=== PATIENT | male | born 1930 | race Asian ===

== ENCOUNTER → 2019-03-30 | Outpatient (CLI) | payer MEDICARE, OTHER | END | disposition home or self-care (01) | LOC: RADPV 10:38 | PROVIDERS: ATTEND Internal Medicine | DX: I08.3 Combined rheumatic disorders of mitral, aortic and tricuspid valves (principal) | CPT/HCPCS: 93306 ==

== ENCOUNTER → 2019-08-01 | Outpatient (CLI) | payer MEDICARE, OTHER | END | disposition home or self-care (01) | LOC: RADPV 09:17 | PROVIDERS: ATTEND Internal Medicine | DX: I65.23 Occlusion and stenosis of bilateral carotid arteries (principal) | CPT/HCPCS: 93880 ==

== ENCOUNTER → 2021-07-07 | Outpatient (CLI) | payer MEDICARE, OTHER ==
[~2021-07-07] MED LIST: ASPI-1227 PO; CHOL-35 PO; FURO40 PO; METF-1211 PO; NIFE-64 PO; OS500 PO; POTA-92 PO; SIMV-259 PO; TELM40 PO; TERA1CAP53 PO; [UNRECOGNIZED DRUG - CODE] IM
== END | disposition home or self-care (01) ==
LOC: RADMN 10:50
PROVIDERS: ATTEND Internal Medicine
DX: I70.0 Atherosclerosis of aorta (principal); J90 Pleural effusion, not elsewhere classified; J81.1 Chronic pulmonary edema; I10 Essential (primary) hypertension; I50.9 Heart failure, unspecified; I35.2 Nonrheumatic aortic (valve) stenosis with insufficiency
CPT/HCPCS: 71046

== ENCOUNTER 2021-07-08 12:01 | Inpatient (IN) | payer MEDICARE, OTHER ==
[~2021-07-08] VITALS: Ht 160 cm; Wt 69.5 kg
[2021-07-08 12:58] LABS: BASOPHILS % (AUTO) 0.9 % (0.0-2.0); EOSINOPHILS % (AUTO) 1.5 % (1.0-6.0); HEMATOCRIT 34.4 % (41-53); HEMOGLOBIN 11.5 g/dL (13.5-17.5); LYMPHOCYTES # (AUTO) 0.7 K/uL (1.0-4.8); LYMPHOCYTES % (AUTO) 9.1 % (22.0-44.0); MEAN CORPUSCULAR HEMOGLOBIN 28.8 pg (26.0-34.0); MEAN CORPUSCULAR HGB CONC 33.5 G/dL (31.0-37.0); MEAN CORPUSCULAR VOLUME 86 fL (80-100); MONOCYTES # (AUTO) 0.4 K/uL (0.1-1.0); MONOCYTES % (AUTO) 5.2 % (2.0-9.0); NEUTROPHILS # (AUTO) 6.4 K/uL (1.8-7.7); NEUTROPHILS % (AUTO) 83.3 % (40.0-70.0); PLATELET COUNT (AUTO) 203 K/uL (150-450); RED CELL DISTRIBUTION WIDTH 15.1 % (11.5-14.5)
[2021-07-08 13:03] LABS: COVID AG,FIA SOURCE NASOPHARYNGEAL
[2021-07-08 13:12] LABS: CALCIUM, TOTAL 9.5 mg/dL (8.8-10.5); CREATININE 1.17 mg/dL (0.60-1.30); POTASSIUM 4.2 mmol/L (3.5-5.1)
[2021-07-08] MEDS ORDERED: FUROSEMIDE 40 MG/4 ML VIAL IVP ONE (13:30)
[2021-07-08 13:35] LABS: ALBUMIN 4.3 g/dL (3.4-5.0); BILIRUBIN,TOTAL 0.9 mg/dL (0.1-1.0); TOTAL PROTEIN, SERUM 7.6 g/dL (6.4-8.2)
[2021-07-08] MEDS ORDERED: ACETAMINOPHEN 325 MG TABLET PO PRN ×2 (14:00→19:30)
[2021-07-08] MEDS ORDERED: ONDANSETRON HCL 4 MG/2 ML VIAL IVP PRN ×2 (14:00→19:30)
[2021-07-08] MEDS ORDERED: ALBUTEROL SULFATE 2.5 MG/0.5 ML NEB SOLUTION NEB PRN (19:30)
[2021-07-08] MEDS ORDERED: BISACODYL 10 MG RECTAL RECTAL SUPPOSITORY PR PRN (19:30)
[2021-07-08] MEDS ORDERED: MORPHINE SULFATE 2 MG/ML SYRINGE IVP PRN (19:30)
[2021-07-08] MEDS ORDERED: IPRATROPIUM BROMIDE 0.5 MG/2.5 ML NEB SOLUTION NEB PRN (19:30)
[2021-07-08] MEDS ORDERED: HYDROCODONE/ACETAMINOPHEN 5-325 MG TABLET PO PRN (19:30)
[2021-07-08] MEDS ORDERED: MAGNESIUM HYDROXIDE SUSPENSION 30 ML UDCUP PO PRN (19:30)
[2021-07-08] MEDS ORDERED: ZOLPIDEM TARTRATE 5 MG TABLET PO PRN (19:30)
[2021-07-08 20:44] VITALS: BP 116/58
[2021-07-08] MEDS: DOCUSATE SODIUM 100 MG CAPSULE PO SCH (21:00)
[2021-07-08 23:45] VITALS: BP 116/52
[2021-07-09 03:39] VITALS: BP 98/68
[2021-07-09 08:33] VITALS: BP 118/56
[2021-07-09] MEDS: TELMISARTAN 40 MG TABLET PO SCH (09:25)
[2021-07-09] MEDS: ASPIRIN 81 MG CHEWABLE TABLET PO SCH (09:26)
[2021-07-09] MEDS: DOCUSATE SODIUM 100 MG CAPSULE PO SCH ×2 (09:26→20:33)
[2021-07-09] MEDS: TERAZOSIN HCL 1 MG CAPSULE PO SCH (09:26)
[2021-07-09] MEDS: NIFEdipine 30 MG ER TABLET PO SCH (09:26)
[2021-07-09] MEDS: CALCIUM CARBONATE 500 MG TABLET PO SCH (09:26)
[2021-07-09] MEDS: HEPARIN SODIUM,PORCINE 5,000 UNITS/ML VIAL SQ SCH ×3 (09:27→16:00)
[2021-07-09] MEDS: FUROSEMIDE 40 MG/4 ML VIAL IVP SCH (09:27)
[2021-07-09] MEDS: PANTOPRAZOLE SODIUM 40 MG/VIAL IVP SCH (09:27)
[2021-07-09 11:56] VITALS: BP 107/47
[2021-07-09 15:25] VITALS: BP 94/50
[2021-07-09 19:47] VITALS: BP 95/49
[2021-07-09 23:33] VITALS: BP 99/61
[2021-07-10 04:05] VITALS: BP 95/41
[2021-07-10 07:30] VITALS: BP 110/98
[2021-07-10] MEDS: HEPARIN SODIUM,PORCINE 5,000 UNITS/ML VIAL SQ SCH ×2 (08:00)
[2021-07-10] MEDS: FUROSEMIDE 40 MG/4 ML VIAL IVP SCH (08:46)
[2021-07-10] MEDS: ASPIRIN 81 MG CHEWABLE TABLET PO SCH (08:46)
[2021-07-10] MEDS: CALCIUM CARBONATE 500 MG TABLET PO SCH (08:46)
[2021-07-10] MEDS: PANTOPRAZOLE SODIUM 40 MG/VIAL IVP SCH (08:46)
[2021-07-10] MEDS: DOCUSATE SODIUM 100 MG CAPSULE PO SCH (08:46)
[2021-07-10] MEDS: TELMISARTAN 40 MG TABLET PO SCH (09:00)
[2021-07-10] MEDS: NIFEdipine 30 MG ER TABLET PO SCH (09:00)
[2021-07-10] MEDS: TERAZOSIN HCL 1 MG CAPSULE PO SCH (09:00)
[2021-07-10 11:37] VITALS: BP 106/49
[2021-07-10] MEDS ORDERED: TELM40 PO (12:32)
[2021-07-10] MEDS ORDERED: NIFE-64 PO (12:35)
[2021-07-10] MEDS ORDERED: ASPI-1227 PO (12:37)
[2021-07-10] MEDS ORDERED: OS500 PO (12:38)
[2021-07-10] MEDS ORDERED: TERA1CAP53 PO (12:39)
[2021-07-10] MEDS ORDERED: CHOL-35 PO (12:40)
[2021-07-10] MEDS ORDERED: SIMV-259 PO (12:41)
[2021-07-10] MEDS ORDERED: [UNRECOGNIZED DRUG - CODE] IM (12:44)
[2021-07-10] MEDS ORDERED: METF-1211 PO (12:44)
[2021-07-10] MEDS ORDERED: FURO40 PO (13:59)
[2021-07-10] MEDS ORDERED: POTA-92 PO (14:01)
== END 2021-07-10 15:00 | disposition home or self-care (01) | DRG 291 ==
LOC: EMS 12:06 → 5S 18:28
PROVIDERS: ADMIT Hospitalist; ATTEND Hospitalist
DX: I11.0 Hypertensive heart disease with heart failure (principal); I50.23 Acute on chronic systolic (congestive) heart failure; D64.9 Anemia, unspecified; E11.9 Type 2 diabetes mellitus without complications; Z20.822 Contact with and (suspected) exposure to COVID-19; I35.0 Nonrheumatic aortic (valve) stenosis; I25.10 Atherosclerotic heart disease of native coronary artery without angina pectoris; E78.5 Hyperlipidemia, unspecified; Z85.46 Personal history of malignant neoplasm of prostate; Z87.891 Personal history of nicotine dependence
CPT/HCPCS: 71045; 80053; 82550; 83880; 84484; 85025; 93005; 93306; 99285; C9113; J1644; J1940; 36415-L1; 36415-TC